=== PATIENT | male | born 1940 | race Caucasian/White ===

== ENCOUNTER → 2020-07-02 | Outpatient (CLI) | payer BC, MEDICARE ==
[~2020-07-02] MED LIST: REGADENOSON 0.4 MG/5 ML SYRINGE ONE
== END | disposition home or self-care (01) ==
LOC: CFH 07:51
PROVIDERS: ATTEND Internal Medicine Cardiovascular Disease
DX: I21.29 ST elevation (STEMI) myocardial infarction involving other sites (principal); I25.9 Chronic ischemic heart disease, unspecified; I25.10 Atherosclerotic heart disease of native coronary artery without angina pectoris; I10 Essential (primary) hypertension
CPT/HCPCS: 78452; 93017; A9502; J2785

== ENCOUNTER → 2020-07-31 | Outpatient (CLI) | payer BC, MEDICARE ==
[~2020-07-31] MED LIST changes: +AMLO5TAB4 PO; +ASPI81TA45 PO; +ATOR40TA78 PO; +BUPR2TAB PO; +CHOL10003 PO; +CLON0.5T PO; +CLOP75TA PO; +GLIM1TAB7 PO; +LEVO137T3 PO; +LINA5TAB PO; +LISI5TAB7 PO; +METF10007 PO; +METO25TA35 PO; -REGADENOSON 0.4 MG/5 ML SYRINGE ONE; +TAMS-11 PO
[2020-07-31 13:50] LABS: CHLORIDE 107 mmol/L (98-107)
[2020-07-31 13:55] LABS: ALANINE AMINOTRANSFERASE 82 U/L (12-78); ALBUMIN 3.5 g/dL (3.4-5.0); ALKALINE PHOSPHATASE 256 U/L (45-117); ANION GAP 3 mmol/L (5-15); BILIRUBIN,TOTAL 0.6 mg/dL (0.2-1.0); CALCIUM 8.6 mg/dL (8.5-10.1); TOTAL PROTEIN 7.5 g/dL (6.4-8.2)
== END | disposition home or self-care (01) ==
LOC: STAR 12:06
PROVIDERS: ATTEND Internal Medicine Gastroenterology
DX: Z01.818 Encounter for other preprocedural examination (principal); K80.50 Calculus of bile duct without cholangitis or cholecystitis without obstruction; R00.1 Bradycardia, unspecified; Z20.822 Contact with and (suspected) exposure to COVID-19
CPT/HCPCS: 36415; 80053; 93005; U0003; U0005

== ENCOUNTER 2020-08-05 05:55 | Day surgery (SDC) | payer OTHER, MEDICARE ==
[~2020-08-05] VITALS: Ht 167.6 cm; Wt 74.8 kg
[2020-08-05] MEDS ORDERED: CHLORHEXIDINE 15 ML UDC PO ONE (07:00)
[2020-08-05] MEDS ORDERED: LACTATED RINGERS 1,000 ML IV SCH (07:00)
[2020-08-05 07:01] VITALS: BP 181/83
[2020-08-05] MEDS ORDERED: PROPOFOL 50 ML ONE (08:29)
[2020-08-05] MEDS ORDERED: FENTANYL PF 100 MCG/2ML ONE (08:29)
[2020-08-05] MEDS ORDERED: OMNIPAQUE 350 MG/ML, 50 ML BOTTLE ONE (08:30)
[2020-08-05] MEDS ORDERED: CEFAZOLIN 1,000 MG ONE (08:42)
[2020-08-05] MEDS ORDERED: ONDANSETRON 2MG/ML, 2ML ONE (08:42)
[2020-08-05] MEDS ORDERED: PROPOFOL 10 MG/ML, 20ML ONE (08:42)
[2020-08-05] MEDS ORDERED: SUCCINYLCHOLINE 20 MG/ML, 10ML ONE (08:42)
[2020-08-05] MEDS ORDERED: ROCURONIUM 10 MG/ML,10ML ONE (08:42)
[2020-08-05] MEDS ORDERED: PROMETHAZINE 25 MG/ML, 1ML IVPush PRN (09:00)
[2020-08-05] MEDS ORDERED: DIAZEPAM 5 MG/ML, 2ML IVPush PRN (09:00)
[2020-08-05] MEDS ORDERED: EPHEDRINE 50 MG/ML, 1ML IVPush PRN (09:00)
[2020-08-05] MEDS ORDERED: morphine SULFATE 10 MG/ML, 1ML IVPush PRN (09:00)
[2020-08-05] MEDS ORDERED: DIPHENHYDRAMINE 50 MG/ML, 1ML IVPush PRN (09:00)
[2020-08-05] MEDS ORDERED: ONDANSETRON 2MG/ML, 2ML IVPush PRN (09:00)
[2020-08-05] MEDS ORDERED: LABETALOL 5MG/ML, 20ML IV PRN (09:00)
[2020-08-05] MEDS ORDERED: hydrALAzine 20 MG/ML, 1ML IV PRN (09:00)
[2020-08-05] MEDS ORDERED: FENTANYL PF 100 MCG/2ML IV PRN (09:00)
[2020-08-05] MEDS ORDERED: EPHEDRINE 50 MG/ML, 1ML IM PRN (09:00)
[2020-08-05] MEDS ORDERED: OXYcodone 5 MG/5 ML ORAL.SOL UDC PO PRN (09:00)
== END 2020-08-05 12:25 | disposition home or self-care (01) ==
LOC: OUT 05:55
PROVIDERS: ATTEND Internal Medicine Gastroenterology
DX: K80.51 Calculus of bile duct without cholangitis or cholecystitis with obstruction (principal); K29.50 Unspecified chronic gastritis without bleeding; K22.5 Diverticulum of esophagus, acquired; K57.10 Diverticulosis of small intestine without perforation or abscess without bleeding; K21.9 Gastro-esophageal reflux disease without esophagitis; I10 Essential (primary) hypertension; I25.2 Old myocardial infarction; E11.9 Type 2 diabetes mellitus without complications; E78.00 Pure hypercholesterolemia, unspecified; E03.9 Hypothyroidism, unspecified; G43.909 Migraine, unspecified, not intractable, without status migrainosus; Z79.82 Long term (current) use of aspirin; Z79.84 Long term (current) use of oral hypoglycemic drugs; Z79.890 Hormone replacement therapy; Z79.899 Other long term (current) drug therapy; Z95.1 Presence of aortocoronary bypass graft; Z98.890 Other specified postprocedural states
CPT/HCPCS: 43239; 43259; 43262; 43264; 74328; 82962; 88305; C1769; J0330; J0690; J2405; J2704; J3010; J7120; Q9967